=== PATIENT | female | born 1980 | race Asian ===

== ENCOUNTER 2023-11-19 14:11 | Emergency (ER) | payer BC ==
[2023-11-19] MEDS: Acetaminophen 500 MG Tab PO ONE (16:18)
== END 2023-11-19 17:43 | disposition home or self-care (01) ==
LOC: JP.ED 14:11
DX: S93.401A Sprain of unspecified ligament of right ankle, initial encounter (principal); Z90.49 Acquired absence of other specified parts of digestive tract; Z79.899 Other long term (current) drug therapy; X50.1XXA Overexertion from prolonged static or awkward postures, initial encounter; Y93.73 Activity, racquet and hand sports
CPT/HCPCS: 73610; 99283; A9270